=== PATIENT | female | born 1945 | race Caucasian/White ===

== ENCOUNTER → 2021-05-19 | Outpatient (CLI) | payer MEDICARE ==
[~2021-05-19] MED LIST: ALEVE220 MG PO; PANTOPRAZOLE SO40 MG PO
== END ==
LOC: RAD 07:59
DX: R01.1 Cardiac murmur, unspecified (principal)
CPT/HCPCS: 71046

== ENCOUNTER → 2021-05-20 | Outpatient (CLI) | payer MEDICARE | LOC: RAD 08:45 | DX: R01.1 Cardiac murmur, unspecified (principal) | CPT/HCPCS: 93306 ==